=== PATIENT | female | born 1955 | race Caucasian/White ===

== ENCOUNTER 2017-02-14 04:43 | Inpatient (IN) ==
--- NOTE | 2017-02-09 11:19 | EKG Report ---
Test Performed on : 02/09/2017 11:05:49 AM Test Reason : PAT Blood Pressure : / mmHG Vent. Rate : 055 BPM Atrial Rate : 055 BPM P-R Int : 184 ms QRS Dur : 080 ms QT Int : 488 ms P-R-T Axes : 043 -30 031 degrees QTc Int : 466 ms Sinus bradycardia. Left axis deviation Possible Inferior infarct , age undetermined Possible Anterior infarct , age undetermined Abnormal ECG No previous ECGs available Confirmed by Tomasz Garcia MD ([id number]) on 02/11/2017 3:07:55 PM
[2017-02-09 11:30] LABS: MANUAL DIFF NEEDED? NO; URINE MICRO REVIEW NEEDED? NO; URINE SOURCE CLEAN CATCH
[2017-02-09 11:32] LABS: BASO% 0.3 % (0.0-0.8); EOS# 0.24 X1000 (0.0-0.7); EOS% 2.6 % (0.0-10.0); HEMATOCRIT 41.1 % (37.0-47.0); HEMOGLOBIN 13.9 g/dL (12.0-16.0); LYMPH# 2.82 X1000 (1.2-3.4); MCH 30.3 PG (27-31); MCHC 33.8 g/dL (33-37); MCV 89.5 FL (81-99); MONO# 0.74 X1000 (0.11-0.59); MONO% 7.9 % (1.7-9.3); MPV 11.6 FL (7.4-10.4); NEUT% 59.2 % (42.2-75.2); PLT 269 X1000 (130-400); RBC 4.59 XMIL (4.2-5.4)
[2017-02-09 11:34] LABS: BILIRUBIN URINE NEGATIVE (NEGATIVE); BLOOD URINE NEGATIVE (NEGATIVE); COLOR YELLOW; GLUCOSE URINE NEGATIVE (NEGATIVE); LEUKOCYTES URINE SMALL (NEGATIVE); NITRITE URINE NEGATIVE (NEGATIVE); PH URINE 6.5; PROTEIN URINE TRACE mg/dL (NEGATIVE); SP GRAVITY URINE 1.017; TURBIDITY URINE CLEAR (CLEAR)
[2017-02-09 11:47] LABS: INR 0.99; PROTIME 10.4 Seconds (9.2-11.7)
[2017-02-09 11:50] LABS: UROBILINOGEN URINE 2 mg/dL (NORMAL)
[2017-02-09 11:51] LABS: UR EPITHELIAL CELLS <10 /HPF (<10); URINE BACTERIA NEGATIVE /HPF; URINE RBC 20-40 /HPF (<10); URINE WBC <10 /HPF (<10)
[2017-02-09 12:16] LABS: AGAP 12; BUN 11 mg/dL (8-22); CALCIUM 9.5 mg/dL (8.8-10.2); CHLORIDE 99 mmol/L (98-107); COSMO 280; POTASSIUM 3.9 mmol/L (3.5-5.1); SODIUM 140 mmol/L (136-145); TCO2 29 mmol/L (25-35)
[2017-02-14] MEDS ORDERED: LR 1,000 ML ONE (05:56)
[2017-02-14] MEDS ORDERED: COLACE ONE (06:15)
[2017-02-14] MEDS ORDERED: PEPCID ONE (06:16)
[2017-02-14] MEDS ORDERED: LYRICA ONE (06:16)
[2017-02-14] MEDS ORDERED: CELEBREX ONE (06:16)
[2017-02-14] MEDS ORDERED: REGLAN ONE (06:16)
[2017-02-14] MEDS ORDERED: KEFZOL 1 GM/D5W 1 GM/50 ML IVPB ONE ×2 (06:17→07:43)
[2017-02-14] MEDS ORDERED: DURAMORPH ONE (06:43)
[2017-02-14] MEDS ORDERED: TORADOL ONE ×2 (06:43→07:28)
[2017-02-14] MEDS ORDERED: MARCAINE 0.25% PF ONE (06:43)
[2017-02-14] MEDS ORDERED: NEOSPORIN G.U. IRRIGANT ONE (06:44)
[2017-02-14] MEDS ORDERED: EXPAREL 1.3% ONE (06:44)
[2017-02-14] MEDS ORDERED: SODIUM CHLORIDE 0.9% ONE (06:44)
[2017-02-14] MEDS ORDERED: CYKLOKAPRON 1,000 MG/NS 1,000 MG/100 ML IVPB ONE (06:44)
[2017-02-14] MEDS ORDERED: DIPRIVAN 1% ONE (06:47)
[2017-02-14] MEDS ORDERED: ROBINUL ONE (06:48)
[2017-02-14] MEDS ORDERED: XYLOCAINE-MPF 2% ONE (06:48)
[2017-02-14] MEDS ORDERED: ZEGERID 40 MG PO PRN (06:59)
[2017-02-14] MEDS ORDERED: LEXAPRO PO PRN (06:59)
[2017-02-14] MEDS ORDERED: ZEMURON ONE (07:16)
[2017-02-14] MEDS ORDERED: DECADRON ONE (07:28)
[2017-02-14] MEDS ORDERED: ZOFRAN ONE (07:28)
[2017-02-14] MEDS ORDERED: OFIRMEV 1000 MG/ISOTONIC SOLN 1,000 MG/100 ML BOTTLE ONE (07:28)
[2017-02-14] MEDS ORDERED: FENTANYL ONE (08:06)
[2017-02-14 08:15] LABS: URINE MICRO REVIEW NEEDED? NO; URINE SOURCE CATH
[2017-02-14 08:20] LABS: BILIRUBIN URINE NEGATIVE (NEGATIVE); BLOOD URINE NEGATIVE (NEGATIVE); COLOR STRAW; GLUCOSE URINE NEGATIVE (NEGATIVE); LEUKOCYTES URINE NEGATIVE (NEGATIVE); NITRITE URINE NEGATIVE (NEGATIVE); PH URINE 7.5; PROTEIN URINE NEGATIVE (NEGATIVE); SP GRAVITY URINE 1.004; TURBIDITY URINE CLEAR (CLEAR); UROBILINOGEN URINE NORMAL (NORMAL)
[2017-02-14 08:22] LABS: UR EPITHELIAL CELLS <10 /HPF (<10); URINE BACTERIA NEGATIVE /HPF; URINE RBC <10 /HPF (<10); URINE WBC <10 /HPF (<10)
[2017-02-14] MEDS ORDERED: DILAUDID ONE (08:22)
[2017-02-14] MEDS ORDERED: APRESOLINE ONE (08:27)
[2017-02-14] MEDS ORDERED: EPHEDRINE ONE (08:53)
[2017-02-14] MEDS ORDERED: DIOVAN PO SCH ×2 (09:00→15:00)
--- NOTE | 2017-02-14 09:35 | OPERATIVE NOTE ---
PROCEDURE DATE: 02/14/2017 PREOPERATIVE DIAGNOSIS: Degenerative joint disease, left hip. POSTOPERATIVE DIAGNOSIS: Degenerative joint disease, left hip. PROCEDURE PERFORMED: Left anterior hip replacement. SURGEON: Melissa Gary MD. SENIOR EDITOR: RASHAD Fleming. ANESTHESIA: General. COMPLICATIONS: None. PROCEDURE IN DETAIL: A 61-year-old female who presents for a left hip replacement. Risks, benefits, and no guarantees were discussed, and she is willing to proceed. She was taken to the operating room and satisfactory anesthesia obtained. She was placed on the Miracle table. The left hip was prepped and draped in the usual sterile fashion. A time-out was taken to confirm operative site, procedure, and patient. The left hip was approached anteriorly through an incision measuring roughly 10-12 cm starting 1 cm distal and lateral to the anterior superior iliac spine. Dissection was carried down through the skin and superficial fat to the fascia of the tensor fascia. This was split in line with the incision and blunt dissection utilized along the inner membrane of the tensor fascia to the anterior hip capsule. Retractors were placed over the superior and inferior aspect of the femoral neck, and a capsulotomy incision made. Femoral neck osteotomy was made roughly 8-10 mm above the lesser trochanter and the femoral head removed. Sequential reaming of the acetabulum was undertaken up to a 55 reamer with good corticocancellous bone. A De[employer] DuoFix AYALA coated cup with a 56 outer diameter was then impacted into the acetabulum under fluoroscopic guidance in roughly 45 degrees of abduction and 10-15 degrees of anteversion. This had secure press-fit fixation. An additional 25 length screw was placed in the 12 o'clock position of the cup for additional security. A 0 degree polyethylene, 36 mm inner diameter liner was impacted in the cup, and the liner cup and cup bone interface checked and noted to be stable. The Miracle table was then used to externally rotate the hip and extend it to allow broaching of the proximal femur. Sequential broaching with the Joox Corail broach system was utilized up to a size 11 stem which had good axial and rotational stability. Standard neck geometry revealed good range of motion and stability with mosque of leg lengths with a 1.5, 36 head, neck length. The trial stem was removed. Then a Corail standard neck size 11 stem impacted in the proximal femur with secure axial and rotational stability. A 36 mm ceramic head with a 1.5 neck length was impacted on this and the hip reduced. Final range of motion revealed no anterior or posterior instability, even with the hip externally rotated 75-80 degrees and 30 degrees of hip extension. Good mosque of leg lengths was visualized through the C-arm, comparing the length before and after surgery as well as with the contralateral hip. The wound was copiously irrigated with irrigant. A Hemovac drain was placed. The joint capsule and subcutaneous tissue were injected with Exparel for pain management. The fascia of the tensor was repaired with a running 0 Vicryl, #1 suture, the subcutaneous with 2-0 Vicryl, and the skin with skin dav. Sterile dressings completed the closure and the patient was recovered from anesthesia and transferred to the recovery room in stable condition. No intraoperative complications were noted. Instrument count and sponge count were correct at the time of closure. The patient was recovered from anesthesia and transferred to the recovery room in stable condition as noted. cc: Lex Gary MD
[2017-02-14] MEDS ORDERED: NS 1,000 ML ONE (09:51)
[2017-02-14] MEDS: MORPHINE ONE ×6 (09:55→11:26)
[2017-02-14] MEDS ORDERED: MORPHINE ONE ×2 (10:05→10:17)
[2017-02-14] MEDS ORDERED: MILK OF MAGNESIA PO PRN (11:00)
[2017-02-14] MEDS ORDERED: AMBIEN PO PRN (11:00)
[2017-02-14] MEDS ORDERED: ZOFRAN IV PRN (11:00)
[2017-02-14] MEDS ORDERED: OXY IR PO PRN (11:00)
[2017-02-14] MEDS ORDERED: MORPHINE IV PRN (11:00)
[2017-02-14] MEDS: BYSTOLIC PO SCH (11:22)
[2017-02-14] MEDS: PATIENT'S OWN MED PO SCH ×2 (11:23→11:24)
[2017-02-14] MEDS: COENZYME Q10 PO SCH (11:24)
[2017-02-14] MEDS: VITAMIN D PO SCH (11:24)
[2017-02-14] MEDS: ZYLOPRIM PO SCH (11:24)
[2017-02-14] MEDS: NS 1,000 ML IV SCH ×2 (11:27→21:35)
[2017-02-14] MEDS: TYLENOL PO SCH ×2 (13:01→20:13)
[2017-02-14] MEDS: ULTRAM PO SCH ×3 (13:01→21:38)
[2017-02-14] MEDS ORDERED: CYKLOKAPRON 1,000 MG in NS 100 ML IV ONE (13:40)
[2017-02-14] MEDS: CATAPRES PO SCH ×2 (14:39→21:34)
[2017-02-14] MEDS: KEFZOL 1 GM/D5W 1 GM/50 ML IVPB IV SCH ×2 (14:42→21:35)
[2017-02-14] MEDS ORDERED: CATAPRES PO SCH (15:00)
--- NOTE | 2017-02-14 16:08 | PROGRESS NOTE ---
DATE: 02/14/2017 SUBJECTIVE: Ms. Kearns is seen postop total joint. At the present time, she is afebrile with stable vital signs. Her bandage is clean and dry. She is motor and sensory intact with good range of motion of the ankle and toes. She has minimal pain. She appears to be in stable condition currently. cc: Lex Gary MD
[2017-02-14] MEDS: COLACE PO SCH (20:12)
[2017-02-14] MEDS: LYRICA PO SCH (20:13)
[2017-02-14] MEDS: CELEBREX PO SCH (20:14)
[2017-02-14] MEDS ORDERED: NORVASC PO SCH (21:00)
[2017-02-15] MEDS: KEFZOL 1 GM/D5W 1 GM/50 ML IVPB IV SCH (01:39)
[2017-02-15] MEDS: TYLENOL PO SCH ×2 (03:48→08:08)
[2017-02-15] MEDS: ULTRAM PO SCH ×2 (03:48→08:08)
[2017-02-15 05:25] LABS: HEMATOCRIT 27.4 % (37.0-47.0); HEMOGLOBIN 8.9 g/dL (12.0-16.0)
[2017-02-15 05:51] LABS: AGAP 10; BUN 11 mg/dL (8-22); CALCIUM 8.6 mg/dL (8.8-10.2); CHLORIDE 105 mmol/L (98-107); COSMO 283; POTASSIUM 4.3 mmol/L (3.5-5.1); SODIUM 141 mmol/L (136-145); TCO2 26 mmol/L (25-35)
[2017-02-15] MEDS ORDERED: XARELTO PO SCH (06:00)
[2017-02-15] MEDS: BYSTOLIC PO SCH (08:08)
[2017-02-15] MEDS: COLACE PO SCH (08:08)
[2017-02-15] MEDS: CELEBREX PO SCH (08:08)
[2017-02-15] MEDS: VITAMIN D PO SCH (08:09)
[2017-02-15] MEDS: COENZYME Q10 PO SCH (08:09)
[2017-02-15] MEDS: LYRICA PO SCH (08:09)
[2017-02-15] MEDS: CATAPRES PO SCH (08:09)
[2017-02-15] MEDS: ZYLOPRIM PO SCH (08:09)
[2017-02-15] MEDS: PATIENT'S OWN MED PO SCH ×2 (08:17)
--- NOTE | 2017-02-15 08:40 | DISCHARGE SUMMARY ---
ADMISSION DATE: 02/14/2017 DISCHARGE DATE: 02/15/2017 ADMITTING DIAGNOSIS: Degenerative joint disease left hip. ADDITIONAL DIAGNOSIS: Hypertension. ADDITIONAL DISCHARGE DIAGNOSIS: Acute blood loss anemia. ADMITTING HISTORY AND HOSPITAL COURSE: This 61-year-old female was admitted to the hospital for left hip replacement. She underwent a left hip replacement without complication. Postoperatively, she did have a drop in her hematocrit due to acute blood loss anemia, but was relatively asymptomatic with no active bleeding. At the present time, she is mobilizing well and discharged home for outpatient followup and therapy. Her incision is clean and dry. There are no signs of active bleeding, infection, or DVT. She is discharged home on her home medications and will receive home therapy and follow up in roughly 12 days. DISCHARGE MEDICATIONS: Include allopurinol 300 mg, Bupap 650/5, Bystolic 20 mg, clonidine 0.3 mg, escitalopram 10 mg, [place] 10, 1-2 every 4-6 hours p.r.n. pain, Mobic 7.5 mg daily, Norvasc 5 mg daily, omeprazole sodium 40 mg daily, paregoric 2 mg, pravastatin 20 mg, tramadol 50 mg p.r.n. and valsartan 160 mg. cc: Lex Gary MD
[2017-02-15] MEDS ORDERED: PEPCID PO SCH (09:00)
[2017-02-15] MEDS: NS 1,000 ML IV SCH (10:32)
[2017-02-15 11:17] VITALS: BP 124/75
== END 2017-02-15 12:12 | disposition home health service (06) ==
LOC: SURHOLD 04:43 → 4N 07:42
PROVIDERS: ADMIT Orthopaedic Surgery Adult Reconstructive Orthopaedic Surgery; ATTEND Orthopaedic Surgery Adult Reconstructive Orthopaedic Surgery